=== PATIENT | male | born 1950 | race Caucasian/White ===

== ENCOUNTER → 2017-11-28 | Outpatient (CLI) | payer MEDICARE | END | disposition home or self-care (01) | LOC: CFH 16:30 | PROVIDERS: ATTEND Nurse Practitioner Primary Care | DX: I48.91 Unspecified atrial fibrillation (principal); R53.83 Other fatigue; E78.2 Mixed hyperlipidemia; E88.81 Metabolic syndrome and other insulin resistance; E55.9 Vitamin D deficiency, unspecified; R07.82 Intercostal pain; R23.9 Unspecified skin changes; G56.00 Carpal tunnel syndrome, unspecified upper limb; Z79.899 Other long term (current) drug therapy | CPT/HCPCS: 71046 ==

== ENCOUNTER → 2017-11-29 | Outpatient (CLI) | payer MEDICARE | LOC: CVU 07:31 | PROVIDERS: ATTEND Nurse Practitioner Primary Care | DX: I35.1 Nonrheumatic aortic (valve) insufficiency (principal); I48.91 Unspecified atrial fibrillation; E78.5 Hyperlipidemia, unspecified; E55.9 Vitamin D deficiency, unspecified; E78.2 Mixed hyperlipidemia; R53.83 Other fatigue; R07.82 Intercostal pain; R23.9 Unspecified skin changes; G56.00 Carpal tunnel syndrome, unspecified upper limb; Z79.899 Other long term (current) drug therapy | CPT/HCPCS: 93306 ==

== ENCOUNTER → 2017-12-15 | Outpatient (CLI) | payer MEDICARE ==
[~2017-12-15] MED LIST: REGADENOSON 0.4 MG/5 ML SYRINGE ONE
== END | disposition home or self-care (01) ==
LOC: CFH 12:03
PROVIDERS: ATTEND Nurse Practitioner Primary Care
DX: I48.0 Paroxysmal atrial fibrillation (principal); R53.83 Other fatigue; E78.2 Mixed hyperlipidemia; E88.81 Metabolic syndrome and other insulin resistance; E55.9 Vitamin D deficiency, unspecified; R07.82 Intercostal pain; R23.9 Unspecified skin changes; G56.00 Carpal tunnel syndrome, unspecified upper limb; Z79.899 Other long term (current) drug therapy
CPT/HCPCS: 78452; 93017; A9502; J2785